=== PATIENT | male | born 1975 | race Two or more races ===

== ENCOUNTER 2017-08-28 21:33 | Emergency (ER) | payer MEDICAID ==
[~2017-08-28] VITALS: Ht 180.3 cm; Wt 82.6 kg
[2017-08-28 21:45] VITALS: BP 119/83
== END 2017-08-29 03:00 | disposition left against medical advice (07) ==
LOC: EDUNIT# 21:33 → EDBD 21:33 → ER 21:38
DX: T54.91XA Toxic effect of unspecified corrosive substance, accidental (unintentional), initial encounter (principal); Z53.21 Procedure and treatment not carried out due to patient leaving prior to being seen by health care provider; X58.XXXA Exposure to other specified factors, initial encounter; Y93.89 Activity, other specified; Y92.89 Other specified places as the place of occurrence of the external cause; Y99.8 Other external cause status

== ENCOUNTER 2018-03-19 15:43 | Emergency (ER) | payer MEDICAID ==
[~2018-03-19] VITALS: Ht 177.8 cm; Wt 81.6 kg
[2018-03-19 16:12] VITALS: BP 148/76
[2018-03-19] MEDS ORDERED: METHOCARBAMOL 500 MG TAB PO ONE (16:30)
== END 2018-03-19 16:35 | disposition home or self-care (01) ==
LOC: ER 15:43
DX: S33.5XXA Sprain of ligaments of lumbar spine, initial encounter (principal); M54.40 Lumbago with sciatica, unspecified side; G89.29 Other chronic pain; Z86.19 Personal history of other infectious and parasitic diseases; X50.0XXA Overexertion from strenuous movement or load, initial encounter; Y93.89 Activity, other specified; Y92.89 Other specified places as the place of occurrence of the external cause; Y99.8 Other external cause status
CPT/HCPCS: 72100

== ENCOUNTER 2019-02-12 16:37 | Emergency (ER) | payer MEDICAID ==
[~2019-02-12] VITALS: Ht 180.3 cm; Wt 79.4 kg
[2019-02-12 16:56] VITALS: BP 132/82
[2019-02-12] MEDS ORDERED: CARISOPRODOL 350 MG TAB PO ONE (17:15)
== END 2019-02-12 17:17 | disposition left against medical advice (07) ==
LOC: EDBD 16:37 → MERGE 16:37 → ER 16:37
DX: M54.5 Low back pain (principal); W01.0XXA Fall on same level from slipping, tripping and stumbling without subsequent striking against object, initial encounter; Y93.89 Activity, other specified; Y92.89 Other specified places as the place of occurrence of the external cause; Y99.8 Other external cause status

== ENCOUNTER 2019-02-23 23:23 | Emergency (ER) | payer MEDICAID ==
[~2019-02-23] VITALS: Ht 172.7 cm; Wt 72.6 kg
[2019-02-24 00:39] LABS: Hematocrit 39.9 % (41.0-53.0); Hemoglobin 13.6 g/dL (13.5-17.5); Mean Corpuscular Hemoglobin 30.7 pg (28.0-32.0); Mean Corpuscular Volume 90.3 fL (80.0-100.0); Platelet Count (auto) 167 10^3/uL (140-450); Red Blood Cells 4.42 10^6/uL (4.5-5.90); Red Cell Distribution Width 13.6 % (11.8-14.3)
[2019-02-24 00:42] LABS: Basophils % (manual) 0 (0.0-2.0); Blast Cells 0; Metamyelocytes % 0; Myelocytes % 0; Promyelocytes % 0; Reactive Lymphocytes 0
[2019-02-24 00:45] LABS: INR 0.95 (0.9-1.15); Partial Thromboplastin Time 26.8 sec (23.78-33.04); Prothrombin Time 10.2 sec (9.27-12.13)
[2019-02-24 00:51] LABS: Alanine Aminotransferase 35 U/L (16-61); Albumin 3.5 g/dL (3.4-5.0); Anion Gap 7 (5-15); Aspartate Aminotransferase 18 U/L (15-37); BUN/Creatinine Ratio 19.7; Blood Urea Nitrogen 15 mg/dL (7-18); Calcium 8.6 mg/dL (8.5-10.1); Carbon Dioxide 23 mmol/L (21-32); Chloride 107 mmol/L (98-107); GFR African American 143 mL/min; GFR Non-African American 118 mL/min; Glucose 103 mg/dL (74-106); Potassium 3.7 mmol/L (3.5-5.1); Sodium 137 mmol/L (136-145)
[2019-02-24 00:55] LABS: Alkaline Phosphatase 52 U/L (45-117); Bilirubin, Total 0.5 mg/dL (0.2-1.0); Total Protein 7.2 g/dL (6.4-8.2)
[2019-02-24 03:00] VITALS: BP 102/62
[2019-02-24 03:00] LABS: Band Neutrophils % (manual) 1; Eosinophils % (manual) 1 (0-7); Lymphocytes % (manual) 73 (10.0-50.0); Monocytes % (manual) 3 (0-12)
[2019-02-24] MEDS ORDERED: LORazepam 0.5 MG TAB PO ONE (05:15)
== END 2019-02-24 05:52 | disposition home or self-care (01) ==
LOC: ER 23:23 → EDBD 23:23 → ER 02-24 05:52
DX: F41.9 Anxiety disorder, unspecified (principal); F44.5 Conversion disorder with seizures or convulsions; G89.4 Chronic pain syndrome; Z88.6 Allergy status to analgesic agent; Z88.8 Allergy status to other drugs, medicaments and biological substances
CPT/HCPCS: 36415; 71045; 80053; 83605; 83880; 84484; 85007; 85027; 85610; 85730; 87040; 93005

== ENCOUNTER 2019-04-27 18:59 | Inpatient (IN) | payer MEDICAID ==
[~2019-04-27] VITALS: Ht 177.8 cm; Wt 74.7 kg
[2019-04-27] MEDS ORDERED: IOHEXOL 350 MG/ML 100ML IJ ONE (19:27)
[2019-04-27 19:44] LABS: Basophils # (auto) 0 uL; Basophils % (auto) 0.6 % (0.0-2.0); Eosinophils # (auto) 0.1 uL; Eosinophils % (auto) 1.6 % (0.0-7.0); Hematocrit 42.8 % (41.0-53.0); Hemoglobin 14.4 g/dL (13.5-17.5); Lymphocytes # (auto) 2.1 uL; Lymphocytes % (auto) 31.8 % (10.0-50.0); Mean Corpuscular Hemoglobin 30.9 pg (28.0-32.0); Mean Corpuscular Hgb Conc. 33.7 g/dL (32.0-36.0); Mean Corpuscular Volume 91.7 fL (80.0-100.0); Monocytes # (auto) 0.5 uL; Monocytes % (auto) 8.4 % (0.0-12.0); Neutrophils # (auto) 3.7 uL; Neutrophils % (auto) 57.6 % (37.0-80.0); Platelet Count (auto) 200 10^3/uL (140-450); Red Blood Cells 4.66 10^6/uL (4.5-5.90); Red Cell Distribution Width 13.5 % (11.8-14.3); White Blood Cell 6.5 10^3/uL (4.4-10.8)
[2019-04-27 20:00] LABS: Alanine Aminotransferase 48 U/L (16-61); Albumin 4.1 g/dL (3.4-5.0); Anion Gap 6 (5-15); Blood Urea Nitrogen 13 mg/dL (7-18); Calcium 8.9 mg/dL (8.5-10.1); Carbon Dioxide 24 mmol/L (21-32); Chloride 110 mmol/L (98-107); Glucose 92 mg/dL (74-106); Potassium 4.4 mmol/L (3.5-5.1); Sodium 140 mmol/L (136-145)
[2019-04-27 20:04] LABS: Alkaline Phosphatase 68 U/L (45-117); Aspartate Aminotransferase 36 U/L (15-37); BUN/Creatinine Ratio 13.7; Bilirubin, Total 0.4 mg/dL (0.2-1.0); GFR African American 111 mL/min; GFR Non-African American 92 mL/min; Total Protein 8.1 g/dL (6.4-8.2)
[2019-04-27] MEDS ORDERED: TETANUS-DIPTH-ACEL PERTUSSIS 0.5ML SYRG IM ONE (20:30)
[2019-04-27] MEDS ORDERED: fentaNYL CITRATE 100 MCG/2 ML VL IV ONE (20:30)
[2019-04-27] MEDS ORDERED: cefTRIAXone 1GM/50ML D5W 50 ML IV ONE (20:30)
[2019-04-27] MEDS ORDERED: ONDANSETRON HCL 4 MG/2 ML VIAL IV ONE (21:30)
[2019-04-27] MEDS ORDERED: HYDROmorphone HCL 2 MG/ML VL IV ONE (21:30)
[2019-04-27] MEDS ORDERED: ONDANSETRON HCL 4 MG/2 ML VIAL IV PRN (22:30)
[2019-04-27] MEDS ORDERED: TEMAZEPAM 15 MG CAP PO PRN (22:30)
[2019-04-27] MEDS ORDERED: MORPHINE SULF INJ 2 MG/ML SYRINGE 1ML IV PRN (22:30)
[2019-04-27] MEDS ORDERED: NITROGLYCERIN 0.4 MG SL TAB SL PRN (22:30)
[2019-04-27] MEDS ORDERED: DOCUSATE SOD 100 MG CAP PO PRN (22:30)
--- NOTE | 2019-04-27 23:50 | NUR ---
MS admit from [facility] admitted to telemetry room 3790m. Patient oriented to DONALDO SUNG, primary RN, unit, room, bed, and unit policies regarding patient care and visiting hours. Room air, pain level 10/10 in left lower extremity related to multiple lacerations, and ambulates independently without assistive devices. IV 20 g in right upper arm IID inserted on 04/27/19. Skin: lacerations to bilateral hands and palms RYLIE. Patient weighed by bedscale and encouraged to call if they need something. All questions and concerns addressed, patient verbalized understanding.
--- NOTE | 2019-04-28 | NUR ---
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 Page sent for prn pain medication. Will await page return.
--- NOTE | 2019-04-28 00:20 | NUR ---
Page return: New order for Nubain 10 mg Q8H prn
[2019-04-28] MEDS ORDERED: ALPR0.25 PO (00:24)
--- NOTE | 2019-04-28 00:30 | NUR ---
Wound care pictures taken of bilateral hands and palms; left lower extremity (total 5 pictures).
[2019-04-28 00:33] VITALS: BP 119/80
[2019-04-28] MEDS: NALBUPHINE HCL 10 MG/1ml INJECTION IV PRN ×2 (01:21→10:16)
--- NOTE | 2019-04-28 02:00 | NUR ---
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 Page sent for pain control plan of care
--- NOTE | 2019-04-28 03:00 | NUR ---
Unable to give tordol to patient for pain control; patient states he has an allergy to NSAIDS that causes his throat to swell. Will page identification officer hospitalist at appropriate time for pain control plan.
[2019-04-28] MEDS ORDERED: KETOROLAC TROMETH 15 mg/ml 1ML VL IV ONE (03:30)
[2019-04-28 05:00] VITALS: BP 109/75
--- NOTE | 2019-04-28 05:01 | NUR ---
Page sent to parts identification technician hospitalist: Per patient, he has throat swelling related to NSAID use. Unable to give tordol related to allergy. Page sent for prn pain medication. Patient still states nubain did not control his pain.
[2019-04-28] MEDS ORDERED: MORPHINE SULF INJ 2 MG/ML SYRINGE 1ML IV ONE (06:00)
[2019-04-28 08:32] LABS: Basophils # (auto) 0 uL; Basophils % (auto) 0.3 % (0.0-2.0); Eosinophils # (auto) 0.1 uL; Eosinophils % (auto) 1.9 % (0.0-7.0); Hemoglobin 13.4 g/dL (13.5-17.5); Lymphocytes # (auto) 1.7 uL; Lymphocytes % (auto) 27.1 % (10.0-50.0); Mean Corpuscular Hemoglobin 31.2 pg (28.0-32.0); Mean Corpuscular Hgb Conc. 34.3 g/dL (32.0-36.0); Monocytes # (auto) 0.4 uL; Neutrophils % (auto) 63.7 % (37.0-80.0); Nucleated Red Blood Cells % 0.1 %; Platelet Count (auto) 153 10^3/uL (140-450); Red Blood Cells 4.29 10^6/uL (4.5-5.90); Red Cell Distribution Width 13.3 % (11.8-14.3); White Blood Cell 6.3 10^3/uL (4.4-10.8)
[2019-04-28] MEDS: cefTRIAXone 1GM/50ML D5W 50 ML IV SCH (08:48)
[2019-04-28 08:59] VITALS: BP 120/86
[2019-04-28 09:00] LABS: Calcium 8.5 mg/dL (8.5-10.1); Potassium 3.9 mmol/L (3.5-5.1)
[2019-04-28 09:57] LABS: BUN/Creatinine Ratio 12.9
--- NOTE | 2019-04-28 10:07 | NUR ---
Dressing change to left left leg, clean wound with wound cleasen , put with neomycin ointment and cover with gauze.
[2019-04-28] MEDS: FAMOTIDINE 20 MG TAB PO SCH ×2 (10:10→21:31)
[2019-04-28] MEDS: DULoxetine HCL 30 MG CAP PO SCH (10:10)
[2019-04-28] MEDS: NEOMYCIN-BACITRACIN-POLYM UNITDOSE PKG TOP OINT TOP SCH (10:10)
--- NOTE | 2019-04-28 10:20 | NUR ---
Los GETTER WELDER at bedside. Patient verbalized suicidal ideation. MD ordered Tele Psych Consult, sitter at bedside. Informed Charge Nurse Vilma.
[2019-04-28] MEDS ORDERED: ALPRAZolam 0.25 MG TAB PO PRN (10:30)
--- NOTE | 2019-04-28 10:40 | NUR ---
Tele Psy Called Spoke to Geo, awaiting to call back.
--- NOTE | 2019-04-28 11:47 | NUR ---
WOUND CARE NOTE: Wound care in to see patient per wound care request regarding s"left lower leg lacerations" that are noted present on admission. Bedside nurse took photograph of patient's wounds upon admission for reference. Patient is 43 years old male with admitting diagnosis of Ventricular Bigeminy. Patient is resting in bed in Rm 287B. He's awake, alert and oriented. He's ambulatory and self turn and reposition. His Arthur score is 22. Skin assessment done with the assistance of patient's nurse, MICHAEL Alves. On reports, patient is moving a glass table, fell and broke, he tripped and landed on the glass sustaining multiple superficial abrasions, scratches to bilateral hands and palm area. Patient also has multi linear lacerations to LLE. Wounds are red with pink ric wound, multi dry blood noted but no active drainage noted. Cleansed LLE wounds with wound cleanser, patted dry with sterile gauze, applied Triple antibiotic ointment, covered with non-adherent dressing (Telfa) secured with stockinette. No other wound noted. Patient tolerated well. Nurse aide at bedside. No further wound care monitoring needed at this time. RECOMMENDATION: Daily/PRN dressing change to LLE wounds per MD order Addendum: 04/28/19 at 1624 by Carmen Mora RN Amended: Links added.
[2019-04-28 13:00] VITALS: BP 116/76
[2019-04-28 17:00] VITALS: BP 124/81
[2019-04-28] MEDS: HYDROmorphone HCL 2 MG/ML VL IV PRN ×2 (18:32→22:28)
--- NOTE | 2019-04-28 19:20 | NUR ---
Tele Psych Per equal opportunity director, tele psych physicians will be available between 7am and 12 pm on 04/29/19.
--- NOTE | 2019-04-28 20:15 | NUR ---
Opening Shift Note: A&Ox4, resting in bed. Room air, pain level 4/10 in left lower leg, and ambulates independently without assistive devices. Suicide precautions in place related to patient expressing suicidal ideation; sitter present at bedside. Bed locked in lowest position, side rails up x2, and call light within reach. IV 20 g in right upper arm IID inserted on 04/27/19. Skin: bilateral hands and palm lacerations RYLIE; left lower leg lacerations covered with telfa pads and stockinette per wound care CDI. POC discussed and questions answered. Will continue to round prn.
[2019-04-28 22:11] VITALS: BP 148/71
[2019-04-29] MEDS: HYDROmorphone HCL 2 MG/ML VL IV PRN ×2 (02:42→06:30)
[2019-04-29 05:17] VITALS: BP 106/77
--- NOTE | 2019-04-29 08:06 | NUR ---
Opening Shift Note Assumed care of patient, awake and alert. No S/S of distress/SOB or pain. Skin is warm and dry to touch. Provide a sitter at bedside, no sign of any suicidal thoughts. Instructed on POC and to call for assist PRN, will continue to monitor for changes Q1hr and PRN.
[2019-04-29 09:00] VITALS: BP 100/75
[2019-04-29] MEDS: cefTRIAXone 1GM/50ML D5W 50 ML IV SCH (09:53)
[2019-04-29] MEDS: FAMOTIDINE 20 MG TAB PO SCH (09:53)
[2019-04-29] MEDS: NEOMYCIN-BACITRACIN-POLYM UNITDOSE PKG TOP OINT TOP SCH (09:53)
[2019-04-29] MEDS: DULoxetine HCL 30 MG CAP PO SCH (09:53)
--- NOTE | 2019-04-29 10:15 | NUR ---
Dressing change to left left leg, clean wound with wound cleasen , put with neomycin ointment and cover with gauze.
--- NOTE | 2019-04-29 10:30 | NUR ---
Psychiatrist discussed with patient at this time.
--- NOTE | 2019-04-29 11:07 | NUR ---
Spoke to Los regarding patient cannot take oxycodone , no new orders at this time. Patient notified.
--- NOTE | 2019-04-29 11:16 | NUR ---
Los NAJERA made aware regarding psychiatrist recommend inpatient psychiatric hospital hold. Charge (Bonita) nurse notified.
--- NOTE | 2019-04-29 11:29 | NUR ---
Jackie (House Sup) notified regarding patient needs .
[2019-04-29 13:00] VITALS: BP 118/80
[2019-04-29] MEDS ORDERED: KETOROLAC TROMETH 15 mg/ml 1ML VL IV ONE (13:30)
[2019-04-29] MEDS: LORazepam 2MG/ML-1ML VIAL IV PRN ×2 (16:05→23:11)
[2019-04-29 17:00] VITALS: BP 121/90
--- NOTE | 2019-04-29 19:30 | NUR ---
Opening Shift Note: A&Ox4, resting in bed. Room air, pain level 6/10 in left lower leg, and ambulates independently without assistive devices. Suicide precautions in place related to patient expressing suicidal ideation; sitter present at bedside; 5150 hold; pending form to be filled out by certified personnel. Bed locked in lowest position, side rails up x2, and call light within reach. IV 20 g in right upper arm IID inserted on 04/27/19. Skin: bilateral hands and palm lacerations RYLIE; left lower leg lacerations covered with telfa pads and stockinette per wound care CDI. POC discussed and questions answered. Will continue to round prn.
[2019-04-29] MEDS: OXYCODONE W/ ACETAMINOPHEN 5/325MG TABLET PO PRN (19:52)
--- NOTE | 2019-04-29 19:57 | NUR ---
Patient states he does not have an allergy to tylenol. Tylenol allergy discontinued in EMR and patient given Percocet per request for pain in LLE 03/26.
[2019-04-29 21:59] VITALS: BP 119/91
[2019-04-30 05:00] VITALS: BP 103/66
[2019-04-30] MEDS: LORazepam 2MG/ML-1ML VIAL IV PRN ×3 (07:51→23:08)
--- NOTE | 2019-04-30 08:00 | NUR ---
Opening Shift Note Assumed care of patient, awake and alert, oriented x 4 and verbally responsive. Respiratory even and unlabored. No S/S of distress/SOB or pain. Skin is warm and dry to touch. Provide a sitter at bedside, no any injuries noted. Instructed on POC and to call for assist PRN, will continue to monitor for changes Q1hr and PRN.
[2019-04-30 09:00] VITALS: BP 130/86
--- NOTE | 2019-04-30 09:30 | NUR ---
Dressing change to left left leg, clean wound with wound cleasen , put with neomycin ointment and cover with telfa and net.
[2019-04-30] MEDS: DULoxetine HCL 30 MG CAP PO SCH (09:31)
[2019-04-30] MEDS: NEOMYCIN-BACITRACIN-POLYM UNITDOSE PKG TOP OINT TOP SCH (09:31)
[2019-04-30] MEDS: OXYCODONE W/ ACETAMINOPHEN 5/325MG TABLET PO PRN ×2 (09:37→20:31)
--- NOTE | 2019-04-30 10:05 | NUR ---
Transfer: await application for 5150 and tele psych report so I can fax to Behavioral call center.
--- NOTE | 2019-04-30 11:11 | NUR ---
Referral packet received by [facility].
[2019-04-30 13:00] VITALS: BP 148/74
[2019-04-30] MEDS ORDERED: hydrOXYzine HCL 10 MG TAB PO PRN (13:30)
--- NOTE | 2019-04-30 13:54 | NUR ---
Per Dr. Lau , patient needs to be re-eval from psychiatric. Awaiting for a Tele psy machine, darryn jacobs) called.
--- NOTE | 2019-04-30 13:56 | NUR ---
[facility] has referred psych intake to the following facilities: [facility], [facility] and [facility].
--- NOTE | 2019-04-30 13:58 | NUR ---
[facility] aware patient in need of re-eval and will hold further referral until then
[2019-04-30] MEDS: ALPRAZolam 0.5 MG TAB PO SCH ×2 (14:22→23:05)
--- NOTE | 2019-04-30 14:37 | NUR ---
Reconsult Psy Eval Spoke to Gurwinder , awaiting to call back.
--- NOTE | 2019-04-30 15:36 | NUR ---
[facility] WILL CALL PER GIANA AT [facility]
[2019-04-30 16:36] VITALS: BP 132/69
--- NOTE | 2019-04-30 18:50 | NUR ---
Tele Psy called, patient scheduled for tomorrow between 07-1200.
[2019-04-30 21:32] VITALS: BP 125/83
[2019-05-01 05:00] VITALS: BP 92/67
[2019-05-01] MEDS: ALPRAZolam 0.5 MG TAB PO SCH ×2 (06:00→14:00)
--- NOTE | 2019-05-01 06:56 | NUR ---
XANAX FOR 6 AM HELD BECAUSE PT IS RESTING WITH EYES CLOSED AND RESPIRATIONS UNLABORED.PT HAD XANAX AND ATIVAN BEFORE MIDNIGHT;WHICH IS STILL VERY MUCH EFFECTIVE. SITTER CONTINUES TO REMAIN AT BEDSIDE.
--- NOTE | 2019-05-01 07:30 | NUR ---
Opening Shift Note Assumed care of patient, awake and alert. No S/S of distress/SOB or pain reported at this time. Instructed on POC and to call for assist PRN, sitter at bedside, will continue to monitor for changes Q1hr and PRN.
[2019-05-01 08:00] VITALS: BP 123/78
[2019-05-01 08:19] VITALS: BP 123/78
[2019-05-01] MEDS: DULoxetine HCL 30 MG CAP PO SCH (08:58)
[2019-05-01] MEDS: OXYCODONE W/ ACETAMINOPHEN 5/325MG TABLET PO PRN (09:00)
--- NOTE | 2019-05-01 09:03 | NUR ---
TELE PSYCH CALLED IN CALLED IN TELE PSYCH. SPOKE WITH [facility]. STATES WILL RETURN CALL WITH AVAILABLE PSYCHIATRIC. TELEPHONE AND EXTENSION PROVIDED. CONTINUED CARE.
[2019-05-01] MEDS: NEOMYCIN-BACITRACIN-POLYM UNITDOSE PKG TOP OINT TOP SCH (10:00)
--- NOTE | 2019-05-01 10:04 | NUR ---
CALLED [facility]. PLS SEE HIS NOTES TO WHERE PT'S INFO FAXED.
[2019-05-01] MEDS: LORazepam 2MG/ML-1ML VIAL IV PRN (10:19)
--- NOTE | 2019-05-01 11:10 | NUR ---
AT BEDSIDE DR CHAPMAN AT BEDSIDE, DISCUSSING POC WITH PT, MD WAS PROVIDED WITH TELE PSYCH REPORTS WHICH ADVISED FOR INVOLUNTARY PSYCH PLACEMENT, CONT CARE
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
--- NOTE | 2019-05-01 12:45 | NUR ---
MD FEDE MISTRY, PT REQUESTING PAIN MEDICATION, STATES CURRENT MEDICATION REGIMENT IS NOT HELPING EASE HIS PAIN, CURRENTLY PRESCRIBED OXYCODONE 5/325 Q6 AND WOULD WANT IT CHANGED TO Q4HR PRN, CONT CARE
[2019-05-01 13:11] VITALS: BP 121/90
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
--- NOTE | 2019-05-01 13:20 | NUR ---
CLAIMS COUNSEL PAGED MARLEN ARNOLD PAGED, TO UPDATE PT REQUESTING TO LEAVE AMA, CONT CARE
--- NOTE | 2019-05-01 13:33 | NUR ---
RETURNED CALL AWARE OF AMA DR CHAPMAN RETURNED CALL, MD AWARE PT REQUESTING TO LEAVE AMA, PER MD TO OBTAIN AND VERIFY PT'S ADDRESS, AND CALL [facility] AFTER PT LEAVES FACILITY, CONT CARE
--- NOTE | 2019-05-01 14:20 | NUR ---
AMA Note Patient encouraged to stay for further treatment and stabilization. Dr Lau was notified of patient's wishes. Patient advised of the risks and benefits of leaving AMA, patient currently understands he is on a 5150 application hold, no current verbalized thoughts of harming self is noted. Patient verbalized understanding. Patient encouraged to return to the ER if symptoms do not improve or worsen. patient states " I will go see my doctor"
--- NOTE | 2019-05-01 14:50 | NUR ---
CALLED [facility] SPOKE WITH DISPATCHER NIC, David RAMIREZ WAS INFORMED PT HAD LEFT THE HOSPITAL AMA, PATIENT HAD BEEN ON AN 5150 APPLICATION HOLD, SHE WILL SEND OUT AN OFFICER TO PT'S ADDRESS
--- NOTE | 2019-05-01 15:57 | NUR ---
DEPUTY BARNARD CALLED STATES HE WENT OUT TO PATIENTS HOME AND ASSESSED PATIENT, PATIENT WAS STABLE AND VERBALIZED NO SELF HARM
[2019-05-01] MEDS ORDERED: MIRTAZAPINE 30 MG TAB PO SCH (22:00)
[2019-05-01] MEDS ORDERED: QUEtiapine FUMARATE 100 MG TAB PO SCH (22:00)
== END 2019-05-01 14:20 | disposition left against medical advice (07) | DRG 384 ==
LOC: EDBD 18:59 → ER 19:03 → TELE 19:04 → MERGE 19:04 → TELE-WESTW 23:45
PROVIDERS: ADMIT Nurse Practitioner; ATTEND Internal Medicine
DX: S81.812A Laceration without foreign body, left lower leg, initial encounter (principal); R45.851 Suicidal ideations; I49.3 Ventricular premature depolarization; S41.111A Laceration without foreign body of right upper arm, initial encounter; F41.9 Anxiety disorder, unspecified; F06.4 Anxiety disorder due to known physiological condition; R00.8 Other abnormalities of heart beat; X78.0XXA Intentional self-harm by sharp glass, initial encounter; S41.112A Laceration without foreign body of left upper arm, initial encounter; Z53.21 Procedure and treatment not carried out due to patient leaving prior to being seen by health care provider; Z88.6 Allergy status to analgesic agent; Z88.5 Allergy status to narcotic agent; Z88.8 Allergy status to other drugs, medicaments and biological substances; Z79.899 Other long term (current) drug therapy
CPT/HCPCS: 36415; 71045; 73706; 80048; 80053; 84484; 85025; 90471; 90715; 93005; 96365; 96375; G0378; J0696; J2405

== ENCOUNTER 2019-05-02 15:08 | Emergency (ER) | payer MEDICAID ==
[~2019-05-02] VITALS: Ht 180.3 cm; Wt 79.4 kg
[~2019-05-02 15:08] MED LIST: ALPR0.25 PO
[2019-05-02 15:52] LABS: Basophils # (auto) 0.1 uL; Basophils % (auto) 1.4 % (0.0-2.0); Eosinophils # (auto) 0.2 uL; Eosinophils % (auto) 3.8 % (0.0-7.0); Hematocrit 42.7 % (41.0-53.0); Hemoglobin 14.1 g/dL (13.5-17.5); Lymphocytes % (auto) 37.8 % (10.0-50.0); Mean Corpuscular Hemoglobin 31.1 pg (28.0-32.0); Mean Corpuscular Volume 94.2 fL (80.0-100.0); Monocytes # (auto) 0.3 uL; Monocytes % (auto) 6.5 % (0.0-12.0); Neutrophils # (auto) 2.7 uL; Neutrophils % (auto) 50.5 % (37.0-80.0); Nucleated Red Blood Cells % 0.1 %; Platelet Count (auto) 97 10^3/uL (140-450); Red Blood Cells 4.53 10^6/uL (4.5-5.90); Red Cell Distribution Width 13.5 % (11.8-14.3); White Blood Cell 5.4 10^3/uL (4.4-10.8)
[2019-05-02] MEDS ORDERED: SODIUM CHLORIDE 0.9% 1,000 ML IV ONE (15:53)
[2019-05-02] MEDS ORDERED: METOCLOPRAMIDE HCL 5MG/ml INJ 2ml VIAL IV ONE (16:00)
[2019-05-02] MEDS ORDERED: HYDROmorphone HCL 2 MG/ML VL IV ONE ×2 (16:00→20:15)
[2019-05-02 16:09] LABS: Anion Gap 5 (5-15); Blood Urea Nitrogen 15 mg/dL (7-18); Carbon Dioxide 24 mmol/L (21-32); Chloride 109 mmol/L (98-107); Glucose 99 mg/dL (74-106); Sodium 138 mmol/L (136-145)
[2019-05-02 16:12] LABS: Alanine Aminotransferase 72 U/L (16-61); Alkaline Phosphatase 68 U/L (45-117); Aspartate Aminotransferase 25 U/L (15-37); BUN/Creatinine Ratio 19.5; Bilirubin, Total 0.4 mg/dL (0.2-1.0); GFR African American 141 mL/min; GFR Non-African American 117 mL/min; Total Protein 7.7 g/dL (6.4-8.2)
[2019-05-02 16:45] LABS: INR 0.94 (0.9-1.15); Partial Thromboplastin Time 26.5 sec (23.64-32.05)
[2019-05-02 18:33] LABS: Urine WBC None Seen /hpf (0 - 3)
[2019-05-02 18:52] LABS: Urine Bacteria NONE SEEN /hpf (None Seen); Urine Blood Negative /uL (Negative); Urine Specific Gravity 1.005 (1.001-1.035)
[2019-05-02 21:30] VITALS: BP 97/67
== END 2019-05-02 23:06 | disposition home or self-care (01) ==
LOC: ER 15:08 → MERGE 15:08 → EDBD 15:08 → ER 23:06
DX: S00.03XA Contusion of scalp, initial encounter (principal); M62.838 Other muscle spasm; M54.2 Cervicalgia; F41.9 Anxiety disorder, unspecified; R55 Syncope and collapse; R51 Headache; R42 Dizziness and giddiness; F32.9 Major depressive disorder, single episode, unspecified; Z88.6 Allergy status to analgesic agent; Z88.8 Allergy status to other drugs, medicaments and biological substances; W10.8XXA Fall (on) (from) other stairs and steps, initial encounter; Y93.89 Activity, other specified; Y92.098 Other place in other non-institutional residence as the place of occurrence of the external cause; Y99.8 Other external cause status
CPT/HCPCS: 36415; 70450; 71046; 71101; 72125; 72131; 80053; 81001; 83735; 84484; 85025; 85610; 85730; 93005; 96361; 96374; 96375; 96376; 99284; J1170; J2765; J7030

== ENCOUNTER 2019-06-18 20:33 | Emergency (ER) | payer MEDICAID ==
[~2019-06-18] VITALS: Ht 177.8 cm; Wt 79.4 kg
[2019-06-18] MEDS ORDERED: EPINEPHrine HCL 1 MG/1 ML AMP SC ONE (21:30)
[2019-06-18] MEDS ORDERED: FAMOTIDINE (10MG/ML) 2ML VL IV ONE (21:30)
[2019-06-18] MEDS ORDERED: methylPREDNISolone SOD SUCC 125 MG/2 ML VL IV ONE (21:30)
[2019-06-18] MEDS ORDERED: SODIUM CHLORIDE 0.9% 1,000 ML IV ONE (21:30)
[2019-06-18 22:21] LABS: Basophils # (auto) 0 uL; Basophils % (auto) 0.4 % (0.0-2.0); Eosinophils # (auto) 0 uL; Eosinophils % (auto) 0.5 % (0.0-7.0); Hematocrit 40.4 % (41.0-53.0); Hemoglobin 13.7 g/dL (13.5-17.5); Lymphocytes # (auto) 2.5 uL; Lymphocytes % (auto) 30.7 % (10.0-50.0); Mean Corpuscular Hemoglobin 31.3 pg (28.0-32.0); Monocytes # (auto) 0.4 uL; Monocytes % (auto) 4.8 % (0.0-12.0); Neutrophils # (auto) 5.2 uL; Neutrophils % (auto) 63.6 % (37.0-80.0); Nucleated Red Blood Cells % 0.1 %; Platelet Count (auto) 173 10^3/uL (140-450); Red Blood Cells 4.39 10^6/uL (4.5-5.90); Red Cell Distribution Width 13.3 % (11.8-14.3); White Blood Cell 8.2 10^3/uL (4.4-10.8)
[2019-06-18 22:43] LABS: Alanine Aminotransferase 23 U/L (16-61); Albumin 3.4 g/dL (3.4-5.0); Anion Gap 7 (5-15); Aspartate Aminotransferase 12 U/L (15-37); BUN/Creatinine Ratio 22.9; Blood Urea Nitrogen 22 mg/dL (7-18); Calcium 7.9 mg/dL (8.5-10.1); Carbon Dioxide 25 mmol/L (21-32); Chloride 109 mmol/L (98-107); GFR African American 109 mL/min; GFR Non-African American 90 mL/min; Glucose 120 mg/dL (74-106); Magnesium 2.2 mg/dL (1.6-2.6); Potassium 3.9 mmol/L (3.5-5.1); Sodium 141 mmol/L (136-145)
[2019-06-18 22:48] LABS: Alkaline Phosphatase 62 U/L (45-117); Bilirubin, Total 0.1 mg/dL (0.2-1.0); Total Protein 6.6 g/dL (6.4-8.2)
[2019-06-18 23:11] VITALS: BP 117/70
== END 2019-06-19 00:44 | disposition home or self-care (01) ==
LOC: ER 20:33
DX: T78.3XXA Angioneurotic edema, initial encounter (principal); T78.40XA Allergy, unspecified, initial encounter; X58.XXXA Exposure to other specified factors, initial encounter; Z88.6 Allergy status to analgesic agent; Z88.8 Allergy status to other drugs, medicaments and biological substances
CPT/HCPCS: 36415; 80053; 83735; 83880; 84484; 85025; 93005; 96372; 96374; 96375; 99284; J0171; J2930; J3490; J7030

== ENCOUNTER 2019-06-28 21:39 | Emergency (ER) | payer MEDICAID ==
[~2019-06-28] VITALS: Ht 177.8 cm; Wt 78.1 kg
[2019-06-28] MEDS ORDERED: FAMOTIDINE 20 MG TAB PO ONE (22:30)
[2019-06-28] MEDS ORDERED: diphenhdrAMINE HCL 25 MG CAP PO ONE (22:30)
[2019-06-28] MEDS ORDERED: DexAMETHasone SOD PHOS 10MG/1ML VIAL INJ IV ONE ×2 (22:30→23:00)
[2019-06-28 22:34] VITALS: BP 140/96
[2019-06-28 23:22] LABS: Basophils # (auto) 0 uL; Basophils % (auto) 0.2 % (0.0-2.0); Eosinophils # (auto) 0.1 uL; Eosinophils % (auto) 0.8 % (0.0-7.0); Hematocrit 39.6 % (41.0-53.0); Hemoglobin 13.3 g/dL (13.5-17.5); Lymphocytes # (auto) 2.3 uL; Lymphocytes % (auto) 33.4 % (10.0-50.0); Mean Corpuscular Hemoglobin 30.9 pg (28.0-32.0); Mean Corpuscular Hgb Conc. 33.6 g/dL (32.0-36.0); Mean Corpuscular Volume 91.9 fL (80.0-100.0); Monocytes # (auto) 0.4 uL; Monocytes % (auto) 5.4 % (0.0-12.0); Neutrophils # (auto) 4.2 uL; Neutrophils % (auto) 60.2 % (37.0-80.0); Nucleated Red Blood Cells % 0.1 %; Platelet Count (auto) 169 10^3/uL (140-450); Red Blood Cells 4.32 10^6/uL (4.5-5.90)
[2019-06-28 23:37] LABS: INR 0.93 (0.9-1.15); Partial Thromboplastin Time 26.4 sec (23.64-32.05)
[2019-06-28 23:43] LABS: Albumin 3.5 g/dL (3.4-5.0); Anion Gap 8 (5-15); Blood Urea Nitrogen 22 mg/dL (7-18); Calcium 8.4 mg/dL (8.5-10.1); Carbon Dioxide 24 mmol/L (21-32); Chloride 108 mmol/L (98-107); Glucose 114 mg/dL (74-106); Potassium 3.5 mmol/L (3.5-5.1); Sodium 140 mmol/L (136-145)
[2019-06-28 23:46] LABS: Alanine Aminotransferase 25 U/L (16-61); Aspartate Aminotransferase 12 U/L (15-37); BUN/Creatinine Ratio 26.2; GFR African American 127 mL/min; GFR Non-African American 105 mL/min
[2019-06-28 23:50] LABS: Alkaline Phosphatase 53 U/L (45-117); Bilirubin, Total 0.3 mg/dL (0.2-1.0); Total Protein 6.6 g/dL (6.4-8.2)
[2019-06-29] MEDS ORDERED: ACETAMINOPHEN/CODEINE#3 (300/30mg) TAB PO ONE
== END 2019-06-29 00:10 | disposition left against medical advice (07) ==
LOC: ER 21:39
DX: S20.211A Contusion of right front wall of thorax, initial encounter (principal); L51.9 Erythema multiforme, unspecified; Z88.6 Allergy status to analgesic agent; Z88.8 Allergy status to other drugs, medicaments and biological substances; X58.XXXA Exposure to other specified factors, initial encounter; Y93.89 Activity, other specified; Y92.89 Other specified places as the place of occurrence of the external cause; Y99.8 Other external cause status
CPT/HCPCS: 36415; 36600; 71045; 80053; 82805; 83880; 84484; 85025; 85610; 85730; 96374; 99284; J1100

== ENCOUNTER 2019-07-10 19:46 | Emergency (ER) | payer MEDICAID ==
[~2019-07-10] VITALS: Ht 177.8 cm; Wt 77.1 kg
[2019-07-10 21:30] VITALS: BP 129/83
[2019-07-10] MEDS ORDERED: methylPREDNISolone SOD SUCC 125 MG/2 ML VL IM ONE (22:15)
== END 2019-07-11 01:01 | disposition home or self-care (01) ==
LOC: ER 19:46
DX: L30.9 Dermatitis, unspecified (principal); Z88.8 Allergy status to other drugs, medicaments and biological substances; Z79.899 Other long term (current) drug therapy; Z90.49 Acquired absence of other specified parts of digestive tract
CPT/HCPCS: 96372; 99283; J2930

== ENCOUNTER 2019-07-23 13:26 | Emergency (ER) | payer MEDICAID ==
[~2019-07-23] VITALS: Ht 180.3 cm; Wt 77.1 kg
[2019-07-23 17:57] VITALS: BP 128/78
[2019-07-23] MEDS ORDERED: MORPHINE SULF INJ 2 MG/ML SYRINGE 1ML IM ONE (18:00)
== END 2019-07-23 18:03 | disposition home or self-care (01) ==
LOC: EDBD 13:26 → ER 13:29
DX: F41.9 Anxiety disorder, unspecified (principal); F32.9 Major depressive disorder, single episode, unspecified; E78.00 Pure hypercholesterolemia, unspecified; Z90.49 Acquired absence of other specified parts of digestive tract
CPT/HCPCS: 70450; 96372; 99284; J2270

== ENCOUNTER 2019-08-10 21:44 | Emergency (ER) | payer MEDICAID ==
[~2019-08-10] VITALS: Ht 177.8 cm; Wt 81.6 kg
[2019-08-10 23:21] LABS: Basophils # (auto) 0 uL; Basophils % (auto) 0.4 % (0.0-2.0); Eosinophils # (auto) 0.1 uL; Eosinophils % (auto) 1.5 % (0.0-7.0); Hematocrit 41.7 % (41.0-53.0); Hemoglobin 14.3 g/dL (13.5-17.5); Lymphocytes # (auto) 2.1 uL; Lymphocytes % (auto) 30.4 % (10.0-50.0); Mean Corpuscular Hemoglobin 31.3 pg (28.0-32.0); Mean Corpuscular Hgb Conc. 34.4 g/dL (32.0-36.0); Mean Corpuscular Volume 90.9 fL (80.0-100.0); Monocytes # (auto) 0.4 uL; Monocytes % (auto) 6.5 % (0.0-12.0); Neutrophils # (auto) 4.1 uL; Neutrophils % (auto) 61.2 % (37.0-80.0); Platelet Count (auto) 156 10^3/uL (140-450); Red Blood Cells 4.58 10^6/uL (4.5-5.90); Red Cell Distribution Width 13.4 % (11.8-14.3); White Blood Cell 6.8 10^3/uL (4.4-10.8)
[2019-08-10 23:28] LABS: Albumin 3.6 g/dL (3.4-5.0); Anion Gap 7 (5-15); BUN/Creatinine Ratio 20.5; Blood Urea Nitrogen 17 mg/dL (7-18); Calcium 8.4 mg/dL (8.5-10.1); Carbon Dioxide 25 mmol/L (21-32); Chloride 107 mmol/L (98-107); GFR African American 129 mL/min; GFR Non-African American 106 mL/min; Glucose 110 mg/dL (74-106); Potassium 4.1 mmol/L (3.5-5.1); Sodium 139 mmol/L (136-145)
[2019-08-10 23:33] LABS: Alanine Aminotransferase 24 U/L (16-61); Alkaline Phosphatase 67 U/L (45-117); Aspartate Aminotransferase 17 U/L (15-37); Bilirubin, Total 0.3 mg/dL (0.2-1.0)
[2019-08-10 23:53] VITALS: BP 123/58
== END 2019-08-11 01:19 | disposition home or self-care (01) ==
LOC: EDSEX 21:44 → EDBD 21:44 → ER 21:49
DX: F41.0 Panic disorder [episodic paroxysmal anxiety] (principal); M79.10 Myalgia, unspecified site; R51 Headache
CPT/HCPCS: 36415; 70450; 80053; 80320; 84484; 85025; 93005

== ENCOUNTER 2020-07-20 10:09 | Inpatient (IN) | payer MEDICAID, OTHER ==
[2020-07-20] VITALS (7 sets, daily range): BP systolic 104–121; BP diastolic 67–85
[~2020-07-20] VITALS: Ht 177.8 cm; Wt 79.1 kg
--- NOTE | 2020-07-20 10:11 | NUR ---
INTUBATION PT BROUGHT IN BY EMS UNRESPONSIVE AND APNEIC WITH ROSC ACHIEVED IN FIELD. PT INTUBATED BY DR. HERNANDEZ WITH ETT 8.0 AT 24CM LIP, SECURED WITH HOLISTER. POSITIVE COLOR CHANGE ON COLORIMETRIC CO2 DETECTOR. BREATH SOUNDS BILATERAL COARSE CRACKLES. PLACED PT ON VENT ADQ 0206 PLUGGED INTO RED OUTLET, ON SETTINGS: AC, RR 14, VT 500, PEEP +5, FIO2 100%. SUCTIONED FOR LARGE THICK BLOOD-TINGED SECRETIONS, SPUTUM SAMPLE OBTAINED AND SENT TO LAB. ALARMS SET AND AUDIBLE. RN AT BEDSIDE. WILL CONT TO MONITOR.
[2020-07-20] MEDS: MIDAZOLAM DRIP 50 mg/50mL 50 ML IV SCH (10:19)
[2020-07-20] MEDS ORDERED: NOREPINEPHRINE 8 MG/250ML KIT 250 ML IV SCH (11:00)
--- NOTE | 2020-07-20 11:00 | NUR ---
RT Transport Note: Patient transported to RADIOLOGY for CT with RN and ERT. Patient transported on steel fitter with alarms set and audible, ambu-bag/mask connected to O2 tank. Patient returned to ER and placed back on ventilator with previous settings. Transport completed without incident.
[2020-07-20 11:37] LABS: Urine Bacteria NONE SEEN /hpf (None Seen); Urine Blood Negative /uL (Negative); Urine Specific Gravity 1.016 (1.001-1.035); Urine Sperm PRESENT /hpf (None Seen); Urine WBC 3 /hpf (0 - 3)
[2020-07-20 11:39] LABS: Basophils # (auto) 0 10 ^3/uL (0-0.2); Basophils % (auto) 0.3 % (0.0-2.0); Eosinophils # (auto) 0.2 10 ^3/uL (0-0.8); Eosinophils % (auto) 2.6 % (0.0-7.0); Hematocrit 38.2 % (41.0-53.0); Hemoglobin 12.4 g/dL (13.5-17.5); Lymphocytes # (auto) 2.4 10 ^3/uL (0.4-5.4); Lymphocytes % (auto) 41.2 % (10.0-50.0); Mean Corpuscular Hemoglobin 30.1 pg (28.0-32.0); Mean Corpuscular Hgb Conc. 32.6 g/dL (32.0-36.0); Mean Corpuscular Volume 92.5 fL (80.0-100.0); Monocytes # (auto) 0.1 10 ^3/uL (0-1.3); Monocytes % (auto) 2.3 % (0.0-12.0); Neutrophils # (auto) 3.1 10 ^3/uL (1.6-8.6); Neutrophils % (auto) 53.6 % (37.0-80.0); Nucleated Red Blood Cells % 0.1 %; Platelet Count (auto) 332 10^3/uL (140-450); Red Blood Cells 4.13 10^6/uL (4.5-5.90); Red Cell Distribution Width 13.2 % (11.8-14.3); White Blood Cell 5.8 10^3/uL (4.4-10.8)
--- NOTE | 2020-07-20 11:48 | NUR ---
ABG RESULTS REPORTED TO DR. HERNANDEZ, VERBAL ORDERS RECEIVED FOR VENT CHANGES: INCREASE RR TO 20. PT NOW ON SETTINGS: AC, RR 20, VT 500, PEEP +5, FIO2 60%. PT TOLERATING CHANGES WELL, NO S/S OF DISTRESS. WILL CONT TO MONITOR.
[2020-07-20 11:51] LABS: Anion Gap 4 (5-15); Blood Urea Nitrogen 17 mg/dL (7-18); Calcium 8.2 mg/dL (8.5-10.1); Carbon Dioxide 30 mmol/L (21-32); Chloride 99 mmol/L (98-107); Glucose 294 mg/dL (74-106); Magnesium 2.7 mg/dL (1.6-2.6); Potassium 4.7 mmol/L (3.5-5.1); Sodium 133 mmol/L (136-145)
[2020-07-20 11:52] LABS: INR 0.97 (0.9-1.15); Partial Thromboplastin Time 26.4 sec (23.0-31.2)
[2020-07-20 11:55] LABS: Alcohol, Urine < 3.0 mg/dL (0-10); Amphetamine Screen, Urine POSITIVE (NEGATIVE); Barbiturate Scree,Urine NEGATIVE (NEGATIVE); Benzodiazephine Screen, Urine POSITIVE (NEGATIVE); Cannabinoid Screen, Urine NEGATIVE (NEGATIVE); Cocaine Screen, Urine POSITIVE (NEGATIVE); Opiate Scree,Urine POSITIVE (NEGATIVE); Phencyclidine Screen, Urine NEGATIVE (NEGATIVE)
[2020-07-20 11:56] LABS: Alanine Aminotransferase 78 U/L (16-61); Alkaline Phosphatase 108 U/L (45-117); Aspartate Aminotransferase 83 U/L (15-37); BUN/Creatinine Ratio 14.7; Bilirubin, Total 0.2 mg/dL (0.2-1.0); GFR African American 87 mL/min; GFR Non-African American 72 mL/min
[2020-07-20] MEDS ORDERED: cefTRIAXone 1GM/50ML D5W 50 ML IV ONE (13:30)
[2020-07-20] MEDS ORDERED: fentaNYL Drip 2500mCg/250mlNS 250 ML IV ONE (13:39)
[2020-07-20] MEDS: fentaNYL Drip 2500mCg/250mlNS 250 ML IV SCH (13:49)
[2020-07-20] MEDS ORDERED: HYDROmorphone HCL 2 MG/ML VL IV PRN (14:30)
[2020-07-20] MEDS ORDERED: LORazepam 2MG/ML-1ML VIAL IV PRN (14:30)
[2020-07-20] MEDS ORDERED: NITROGLYCERIN 0.4 MG SL TAB SL PRN (14:30)
[2020-07-20] MEDS ORDERED: MORPHINE SULF INJ 2 MG/ML SYRINGE 1ML IV PRN ×2 (14:30→15:45)
[2020-07-20] MEDS ORDERED: ACETAMINOPHEN 500 MG TAB PO PRN (15:45)
[2020-07-20] MEDS ORDERED: LACTULOSE 20Gm/30ML SOLN PO PRN (15:45)
[2020-07-20] MEDS ORDERED: ALBUTEROL SULF 2.5 MG/0.5ML(0.5%) NEB SOLN NEB PRN (15:45)
--- NOTE | 2020-07-20 15:51 | NUR ---
FAILED CPAP TRIAL, APNEIC EPISODES PT WAKES WITH STIMULATION, ABLE TO FOLLOW SIMPLE COMMANDS. INITIATED CPAP TRIAL ORDERED PER DR. SIERRA. PT WITH APNEIC EPISODES AND O2 DESAT TO 88%. ATTEMPTED 4X, PT INITIATES SPONTANEOUS BREATHING WHEN COACHED, BUT CONTINOUSLY BECOMES APNEIC IF NOT STIMULATED. SWITCHED PT BACK TO AC MODE WITH PREVIOUS SETTINGS. CALLED DR. SIERRA AND UPDATED MD ON PT STATUS. PER MD, KEEP SEDATION TURNED OFF AND TRY AGAIN WHEN PT IS MORE AWAKE. RN AWARE. WILL CONT TO MONITOR.
[2020-07-20] MEDS: SODIUM CHLORIDE 0.9% 1,000 ML IV SCH (16:22)
[2020-07-20] MEDS ORDERED: ACETAMINOPHEN 650 mg PER 20 mL UD PO PRN (17:00)
[2020-07-20] MEDS: ALBUTEROL SULF 2.5 MG/0.5ML(0.5%) NEB SOLN NEB SCH (18:19)
[2020-07-20] MEDS: IPRATROPIUM BROM 0.5 MG/2.5ML INH SOL NEB SCH (18:19)
[2020-07-20] MEDS: BUDESONIDE (INHALATION) 180 MCG IH IN SCH (18:19)
[2020-07-20] MEDS ORDERED: ALBUTEROL SULF HFA 90MCG INH 200DOSE IN SCH (22:00)
--- NOTE | 2020-07-20 22:21 | NUR ---
Respiratory note: ATTEMPTED CPAP TRIAL ORDERED. PT IS AWAKE, BREATHS SPONTANEOUSLY. THEN FALLS ASLEEP AND HAS APNEIC EPISODES LASTING 14-15 SECONDS. PLACED BACK ON A/C.
[2020-07-21 00:05] VITALS: BP 110/67
[2020-07-21 04:30] VITALS: BP 100/63
[2020-07-21] MEDS: SODIUM CHLORIDE 0.9% 1,000 ML IV SCH ×2 (05:28→15:33)
[2020-07-21 05:34] LABS: Basophils # (auto) 0 10 ^3/uL (0-0.2); Basophils % (auto) 0.3 % (0.0-2.0); Eosinophils # (auto) 0.1 10 ^3/uL (0-0.8); Eosinophils % (auto) 1.4 % (0.0-7.0); Hematocrit 34.2 % (41.0-53.0); Hemoglobin 11.3 g/dL (13.5-17.5); Lymphocytes # (auto) 1.3 10 ^3/uL (0.4-5.4); Lymphocytes % (auto) 15.2 % (10.0-50.0); Mean Corpuscular Hemoglobin 29.9 pg (28.0-32.0); Mean Corpuscular Hgb Conc. 33.2 g/dL (32.0-36.0); Mean Corpuscular Volume 90.1 fL (80.0-100.0); Monocytes # (auto) 0.3 10 ^3/uL (0-1.3); Monocytes % (auto) 3.6 % (0.0-12.0); Neutrophils # (auto) 6.7 10 ^3/uL (1.6-8.6); Neutrophils % (auto) 79.5 % (37.0-80.0); Nucleated Red Blood Cells % 0.1 %; Platelet Count (auto) 259 10^3/uL (140-450); Red Cell Distribution Width 12.9 % (11.8-14.3); White Blood Cell 8.5 10^3/uL (4.4-10.8)
[2020-07-21 05:51] LABS: Albumin 2.6 g/dL (3.4-5.0); Potassium 3.9 mmol/L (3.5-5.1)
[2020-07-21 05:54] LABS: BUN/Creatinine Ratio 23.7; Bilirubin, Total 0.8 mg/dL (0.2-1.0); Total Protein 6.1 g/dL (6.4-8.2)
[2020-07-21] MEDS: ALBUTEROL SULF 2.5 MG/0.5ML(0.5%) NEB SOLN NEB SCH ×3 (06:00→12:00)
[2020-07-21] MEDS: IPRATROPIUM BROM 0.5 MG/2.5ML INH SOL NEB SCH ×3 (06:00→12:00)
[2020-07-21 06:50] VITALS: BP 96/62
--- NOTE | 2020-07-21 08:55 | NUR ---
EXTUBATED PT PER DR. JALLOH'S ORDERS. PT WAS PLACED ON 8L CA AT 30%, SPO2 96%, HR 85, RR 21, WITH CLEAR DIMINISHED BS. NO STRIDOR NOTED. WILL CONTINUE TO MONITOR PT.
[2020-07-21] MEDS ORDERED: cefTRIAXone 1GM/50ML D5W 50 ML IV SCH (09:00)
[2020-07-21] MEDS: ASPirin 81 mg TAB PO SCH (09:35)
[2020-07-21] MEDS: HYDROmorphone HCL 2 MG/ML VL IV PRN ×3 (10:00→20:10)
[2020-07-21] MEDS ORDERED: AZITHROMYCIN 500MG/ 250ML 250 ML IV SCH (10:00)
[2020-07-21] MEDS ORDERED: ASCORBIC ACID 1,000 MG TAB PO SCH (10:00)
[2020-07-21] MEDS ORDERED: ZINC SULFATE 220mg CAP or TAB PO SCH (10:00)
[2020-07-21] MEDS ORDERED: CHOLECALCIFEROL (VITD3) 2,000 UNIT CAP PO SCH (10:00)
[2020-07-21] MEDS ORDERED: DexAMETHasone SOD PHOS 10MG/1ML VIAL INJ IV SCH (10:00)
--- NOTE | 2020-07-21 10:02 | NUR ---
PLACED PT ON 3L NC WITH SPO2 95%, HR 101, RR 22, BS ARE CLEAR NO DISTRESS NOTED. MED NEB HAVE BEEN HELD DUE TO PT IS COVID R/O. PT IN NO DISTRESS WITH CLEAR BS. WILL CONTINUE TO MONITOR
[2020-07-21] MEDS: ENOXAPARIN SOD 40 MG/0.4 ML SYRINGE SC SCH (10:45)
[2020-07-21] MEDS: MIDAZOLAM DRIP 50 mg/50mL 50 ML IV SCH ×2 (11:31→12:00)
[2020-07-21] MEDS: BUDESONIDE (INHALATION) 180 MCG IH IN SCH (11:32)
[2020-07-21] MEDS: MORPHINE SULF INJ 2 MG/ML SYRINGE 1ML IV PRN ×2 (13:13→23:35)
[2020-07-21] MEDS: fentaNYL Drip 2500mCg/250mlNS 250 ML IV SCH (13:45)
[2020-07-21] MEDS ORDERED: PIPERACILLIN-TAZOB 3.375GM 100 ML IV ONE (14:45)
--- NOTE | 2020-07-21 17:28 | NUR ---
SWALLOW EVALUATED IN EMERGENCY DEPT. PATIENT HAS NATURAL TEETH UPPER AND LOWER. PATIENT ALERT AND ABLE TO FOLLOW COMMANDS. PATIENT ABLE TO TOLERATE REGULAR TEXTURE WITH THIN LIQUIDS WITH NO OVERT SIGNS OR SYMPTOMS OF ASPIRATION. NURSING NOTIFIED.
--- NOTE | 2020-07-21 18:45 | NUR ---
Telemetry admit from ER YAMILKASIMRAN TALAMANTES admitted to Telemetry unit after SBAR received. Patient oriented to Vilma zazueta RN, unit, room, bed, and unit policies regarding patient care and visiting hours. Patient now on continuous telemetry monitoring, tele box # 56 and telemetry reading on arrival to unit is ST 104. Patient placed on bedside oxygen, weighed by bedscale and encouraged to call if they need something. All questions and concerns addressed, patient verbalized understanding. Call light within reach, Tripple lumen cathter notes to right subclavian, roth patent draining clear yellow urine, VS 121/85, Temp 97.8, RR 16, reports pain 8/10, skin abrasions noted right wrist, right hand and right foot
--- NOTE | 2020-07-21 19:19 | NUR ---
Opening Shift Note Assumed care of patient, awake, alert and oriented x4, on 3L of oxygen via NC with even and unlabored respirations, no S/S of distress/SOB or pain. Patient able to turn in bed independently, bed in lowest locked position, side rails up x2, and call light within reach. Instructed on POC and to call for assist PRN, will continue to monitor for changes Q1hr and PRN.
[2020-07-21] MEDS ORDERED: ALPR0.25 PO (20:02)
[2020-07-21] MEDS: PROMETHAZINE HCL 25 MG/ML 1ML IV PRN (20:12)
[2020-07-21 22:00] VITALS: BP 108/67
[2020-07-21] MEDS: PIPERACILLIN-TAZOB 3.375GM 100 ML IV SCH (23:45)
[2020-07-22] MEDS: SODIUM CHLORIDE 0.9% 1,000 ML IV SCH ×3 (00:45→20:45)
[2020-07-22] MEDS: PROMETHAZINE HCL 25 MG/ML 1ML IV PRN ×2 (03:04→06:16)
[2020-07-22] MEDS: HYDROmorphone HCL 2 MG/ML VL IV PRN ×2 (03:04→09:15)
[2020-07-22 05:00] VITALS: BP 106/69
[2020-07-22] MEDS: PIPERACILLIN-TAZOB 3.375GM 100 ML IV SCH ×4 (06:16→23:44)
[2020-07-22] MEDS: MORPHINE SULF INJ 2 MG/ML SYRINGE 1ML IV PRN ×3 (06:19→22:02)
[2020-07-22 06:33] LABS: Basophils # (auto) 0 10 ^3/uL (0-0.2); Basophils % (auto) 0.1 % (0.0-2.0); Eosinophils # (auto) 0 10 ^3/uL (0-0.8); Hematocrit 33.6 % (41.0-53.0); Hemoglobin 11.4 g/dL (13.5-17.5); Lymphocytes # (auto) 0.5 10 ^3/uL (0.4-5.4); Mean Corpuscular Hemoglobin 30.5 pg (28.0-32.0); Mean Corpuscular Volume 89.7 fL (80.0-100.0); Monocytes # (auto) 0.2 10 ^3/uL (0-1.3); Monocytes % (auto) 2.6 % (0.0-12.0); Neutrophils # (auto) 7.3 10 ^3/uL (1.6-8.6); Neutrophils % (auto) 91.3 % (37.0-80.0); Nucleated Red Blood Cells % 0.1 %; Platelet Count (auto) 264 10^3/uL (140-450); Red Blood Cells 3.74 10^6/uL (4.5-5.90); Red Cell Distribution Width 12.8 % (11.8-14.3)
[2020-07-22 06:47] LABS: Magnesium 2.4 mg/dL (1.6-2.6); Potassium 4.2 mmol/L (3.5-5.1)
[2020-07-22 06:54] LABS: Albumin 2.6 g/dL (3.4-5.0); BUN/Creatinine Ratio 19.5; Bilirubin, Total 0.4 mg/dL (0.2-1.0); Calcium 8.7 mg/dL (8.5-10.1); Total Protein 6.8 g/dL (6.4-8.2)
--- NOTE | 2020-07-22 08:20 | NUR ---
Insentive Spirometer Patient provided with an IS and educated on need for use and how to use it properly. Patient demonstrated correctly and agrees to using IS as per order.
[2020-07-22 09:00] VITALS: BP 107/68
[2020-07-22] MEDS: ASPirin 81 mg TAB PO SCH ×2 (09:14→10:00)
[2020-07-22] MEDS: ASCORBIC ACID 500 MG TAB PO SCH (09:15)
[2020-07-22] MEDS: ENOXAPARIN SOD 40 MG/0.4 ML SYRINGE SC SCH (09:15)
[2020-07-22] MEDS ORDERED: CHOLECALCIFEROL (VITD3) 1,000UNIT=25mCg TAB PO SCH (10:00)
--- NOTE | 2020-07-22 11:04 | NUR ---
Dr. Payan at bed side. New orders received. Refer to order hx.
--- NOTE | 2020-07-22 12:54 | NUR ---
Physical therapy at bed side
--- NOTE | 2020-07-22 12:54 | NUR ---
Roth catheter dc'd Order to discontinue roth catheter. Roth dc'd with clean technique following deflation of balloon. Patient tolerated well with no complaints of pain. Continue care.
[2020-07-22 13:00] VITALS: BP 110/69
[2020-07-22 16:30] VITALS: BP 126/80
--- NOTE | 2020-07-22 20:00 | NUR ---
OPENING NOTE Received report from day shift RN. Patient is A&O X's 4 with no s/s of distress and reports pain to right ribs/neck and back. Educated patient on POC/pain management and to use call light when in need of assistance. Patient verbalized understanding. Will provide pain medication when it is due. Bed is in lowest/locked position with side rails up X's 2 and call light is within reach of patient. HOB elevated for aspiration precautions. Educated patient to use call light if in need to ambulate and needs assistance. Will continue care.
[2020-07-22 22:00] VITALS: BP 131/89
[2020-07-22] MEDS: ALPRAZolam 0.25 MG TAB PO PRN (22:22)
--- NOTE | 2020-07-22 23:49 | NUR ---
ROUNDS Patient is now sleeping. No s/s of discomfort noted. Will continue care.
[2020-07-23] MEDS: MORPHINE SULF INJ 2 MG/ML SYRINGE 1ML IV PRN ×2 (03:04→10:20)
--- NOTE | 2020-07-23 03:34 | NUR ---
PAIN REASSESSMENT Patient is resting in bed. No s/s of discomfort. Will continue care.
[2020-07-23 05:00] VITALS: BP 135/54
[2020-07-23] MEDS: PIPERACILLIN-TAZOB 3.375GM 100 ML IV SCH ×2 (05:48→12:00)
[2020-07-23] MEDS: SODIUM CHLORIDE 0.9% 1,000 ML IV SCH (05:49)
--- NOTE | 2020-07-23 06:46 | NUR ---
END OF SHIFT ROUNDS Patient is resting in bed with no s/s of distress or discomfort.
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
[2020-07-23] MEDS: ASPirin 81 mg TAB PO SCH (10:00)
[2020-07-23] MEDS: ASCORBIC ACID 500 MG TAB PO SCH (10:19)
[2020-07-23] MEDS: ENOXAPARIN SOD 40 MG/0.4 ML SYRINGE SC SCH (10:20)
--- NOTE | 2020-07-23 11:25 | NUR ---
DR LAU AT BEDSIDE REVIEWING POC WITH PT
[2020-07-23] MEDS: ALPRAZolam 0.25 MG TAB PO PRN (11:26)
--- NOTE | 2020-07-23 12:05 | NUR ---
REFUSED TO GET OUT OF BED FOR LUNCH PT OFFERED A CHAIR AND ASSISTANCE TO GET UP FOR LUNCH AND REFUSED.
[2020-07-23] MEDS ORDERED: DOXY-286 PO (12:20)
--- NOTE | 2020-07-23 13:37 | NUR ---
DR LAU NOTIFIED OF PT PAIN SHE ORDERED A ONE TIME DOSE OF NORCO 5/325, AND ISSUED THE PT A SCRIPT TO TAKE ON DISCHARGE. ORDER PLACED AND WILL BE GIVEN PRIOR TO D/C
[2020-07-23] MEDS ORDERED: HYDROcodone-ACET 5/325MG TAB PO ONE (13:45)
--- NOTE | 2020-07-23 15:16 | NUR ---
DISCHARGE INSTRUCTIONS GIVEN ALONG WITH HIS PRESCRIPTIONS TO FILL AND HIS ANTIBIOTICS THAT HAVE BEEN ALREADY FILLED AND DELIVERED BY [facility]. CENTRAL LINE REMOVED WITH CATHETER INTACT, WITH MINIMAL BLEEDING AND PRESSURE DRESSING APPLIED. PT FAMILY ARRIVING TO LOBBY TO PICK PT UP, ALL PERSONAL BELONGINGS WITH PT TAKEN TO AWAITING RIDE BY JACKIE PALMER IN WHEELCHAIR. TELE#[id number] REMOVED, CLEANED AND RETURNED TO ICU. CALLED TO VERIFY RETURN WITH CYNDY
[2020-07-24 09:01] LABS: Hepatitis B Surface Antibody Positive
[2020-07-24 09:37] LABS: Hepatitis A Total Antibody Positive
[2020-07-24 11:09] LABS: Hepatitis B Surface Antigen Negative (Negative)
[2020-07-24 11:10] LABS: Hepatitis C Antibody Reactive (Negative)
[2020-07-24 11:14] LABS: Hepatitis B Core Total AB Positive
== END 2020-07-23 15:25 | disposition home or self-care (01) | DRG 812 ==
LOC: EDBD 10:09 → ER 10:09 → MERGE 10:10 → TELE 10:10 → TELE-WESTW 07-21 18:40
PROVIDERS: ADMIT Internal Medicine; ATTEND Internal Medicine
PROC: 5A1935Z Respiratory Ventilation, Less than 24 Consecutive Hours (ICD-10-PCS; principal; 2020-07-20)
PROC: 0BH17EZ Insertion of Endotracheal Airway into Trachea, Via Natural or Artificial Opening (ICD-10-PCS; 2020-07-20)
PROC: 02H633Z Insertion of Infusion Device into Right Atrium, Percutaneous Approach (ICD-10-PCS; 2020-07-20)
DX: T43.621A Poisoning by amphetamines, accidental (unintentional), initial encounter (principal); T40.2X1A Poisoning by other opioids, accidental (unintentional), initial encounter; T40.601A Poisoning by unspecified narcotics, accidental (unintentional), initial encounter; A41.9 Sepsis, unspecified organism; J96.01 Acute respiratory failure with hypoxia; I46.9 Cardiac arrest, cause unspecified; J69.0 Pneumonitis due to inhalation of food and vomit; E11.65 Type 2 diabetes mellitus with hyperglycemia; G92 Toxic encephalopathy; J32.9 Chronic sinusitis, unspecified; J98.11 Atelectasis; F41.9 Anxiety disorder, unspecified; Z20.828 Contact with and (suspected) exposure to other viral communicable diseases; Z86.73 Personal history of transient ischemic attack (TIA), and cerebral infarction without residual deficits; Y92.89 Other specified places as the place of occurrence of the external cause; D64.9 Anemia, unspecified
CPT/HCPCS: 31500; 36415; 36556; 36600; 70450; 71045; 71101; 71250; 72125; 73200; 74176; 80053; 80061; 80307; 81001; 82550; 82728; 82805; 83605; 83735; 83880; 84443; 84484; 85025; 85379; 85610; 85652; 85730; 86704; 86706; 86708; 86803; 87040; 87070; 87077; 87186; 87205; 87340; 87426; 92610; 93005; 93306; 93970; 94002; 94003; 96365; 96367; 97163; 99291; G0378; J0696; J1100; J2250; J2543

== ENCOUNTER 2020-07-31 12:35 | Emergency (ER) | payer MEDICAID ==
[~2020-07-31] VITALS: Ht 177.8 cm; Wt 68.0 kg
[~2020-07-31 12:35] MED LIST changes: +DOXY-286 PO
[2020-07-31] MEDS ORDERED: SODIUM CHLORIDE 0.9% 1,000 ML IVB ONE (13:00)
[2020-07-31] MEDS ORDERED: NALOXONE HCL 1MG/ML 2ML SYRINGE IV ONE (13:00)
[2020-07-31 13:31] LABS: Hematocrit 41.2 % (41.0-53.0); Hemoglobin 13.6 g/dL (13.5-17.5); Mean Corpuscular Hemoglobin 30.6 pg (28.0-32.0); Mean Corpuscular Hgb Conc. 33.1 g/dL (32.0-36.0); Mean Corpuscular Volume 92.4 fL (80.0-100.0); Platelet Count (auto) 287 10^3/uL (140-450); Red Blood Cells 4.45 10^6/uL (4.5-5.90); Red Cell Distribution Width 13.3 % (11.8-14.3); White Blood Cell 6.2 10^3/uL (4.4-10.8)
[2020-07-31 13:33] LABS: Basophils % (manual) 0 (0.0-2.0); Blast Cells 0; Eosinophils % (manual) 0 (0-7); Metamyelocytes % 0; Myelocytes % 0; Promyelocytes % 0; Reactive Lymphocytes 0
[2020-07-31 13:38] LABS: Albumin 3.3 g/dL (3.4-5.0); Anion Gap 11 (5-15); Blood Urea Nitrogen 15 mg/dL (7-18); Calcium 8.6 mg/dL (8.5-10.1); Carbon Dioxide 22 mmol/L (21-32); Chloride 105 mmol/L (98-107); Glucose 257 mg/dL (74-106); Salicylate < 1.7 mg/dL (2.8-20.0); Sodium 138 mmol/L (136-145)
[2020-07-31 13:44] LABS: Alanine Aminotransferase 58 U/L (16-61); Alkaline Phosphatase 120 U/L (45-117); Aspartate Aminotransferase 46 U/L (15-37); Bilirubin, Total 0.5 mg/dL (0.2-1.0); Blood Alcohol < 3.0 mg/dL (0-5); GFR African American 67 mL/min; GFR Non-African American 56 mL/min; Total Protein 7.4 g/dL (6.4-8.2)
[2020-07-31 13:58] LABS: BUN/Creatinine Ratio 10.3
[2020-07-31 14:40] LABS: Amphetamine Screen, Urine POSITIVE (NEGATIVE); Barbiturate Scree,Urine NEGATIVE (NEGATIVE); Benzodiazephine Screen, Urine POSITIVE (NEGATIVE); Cannabinoid Screen, Urine NEGATIVE (NEGATIVE); Cocaine Screen, Urine NEGATIVE (NEGATIVE); Opiate Scree,Urine POSITIVE (NEGATIVE); Phencyclidine Screen, Urine NEGATIVE (NEGATIVE)
[2020-07-31 14:47] LABS: Urine Bacteria FEW /hpf (None Seen); Urine Blood Negative /uL (Negative); Urine Hyaline Cast FEW /lpf (0 - 2); Urine Specific Gravity 1.012 (1.001-1.035); Urine Sperm PRESENT /hpf (None Seen); Urine WBC 4 /hpf (0 - 3)
[2020-07-31 14:54] LABS: Band Neutrophils % (manual) 6; Lymphocytes % (manual) 15 (10.0-50.0); Monocytes % (manual) 4 (0-12)
[2020-07-31 16:00] VITALS: BP 113/74
[2020-07-31] MEDS ORDERED: ACETYLCYSTEINE ORAL for CIN 20%(200MG/ML) 4ML PO ONE (16:15)
== END 2020-07-31 16:53 | disposition home or self-care (01) ==
LOC: EDUNIT# 12:35 → ER 12:35 → EDBD 12:35 → ER 16:53
DX: T42.4X1A Poisoning by benzodiazepines, accidental (unintentional), initial encounter (principal); T40.601A Poisoning by unspecified narcotics, accidental (unintentional), initial encounter; R41.82 Altered mental status, unspecified; E86.0 Dehydration; Z88.6 Allergy status to analgesic agent; Z88.8 Allergy status to other drugs, medicaments and biological substances; Y92.9 Unspecified place or not applicable
CPT/HCPCS: 36415; 71045; 80053; 80307; 80320; 80329; 81001; 85007; 85027; 93005; 96360; 96361